=== PATIENT | female | born 1960 | race Caucasian/White ===

== ENCOUNTER → 2017-06-29 | Emergency (ER) | payer OTHER ==
[~2017-06-29] VITALS: Ht 165.1 cm; Wt 70.3 kg
[~2017-06-29] MED LIST: FIORICET 50-301 EACH; FIORICET TABLET1 TAB; IMITREX100 MG; IMITREX100 MG PO; LEVSINEX0.375 M1 PO; PROTECT PLUS S1 EACH PO; ZOFRAN8 MG PO; ZOLOFT100 MG
== END | disposition home or self-care (01) ==
LOC: ER 13:34
DX: K29.70 Gastritis, unspecified, without bleeding (principal); G43.809 Other migraine, not intractable, without status migrainosus

== ENCOUNTER → 2017-10-06 | Emergency (ER) | payer OTHER ==
[~2017-10-06] VITALS: Ht 167.6 cm; Wt 72.6 kg
[~2017-10-06] MED LIST changes: +DIOVAN160 M1
== END | disposition home or self-care (01) ==
LOC: ER 17:48
DX: G43.909 Migraine, unspecified, not intractable, without status migrainosus (principal)

== ENCOUNTER → 2018-04-05 | Emergency (ER) | payer OTHER ==
[~2018-04-05] VITALS: Ht 165.1 cm; Wt 77.1 kg
== END | disposition home or self-care (01) ==
LOC: ER 13:21
DX: K52.9 Noninfective gastroenteritis and colitis, unspecified (principal)

== ENCOUNTER 2018-11-25 18:08 | Emergency (ER) | payer OTHER ==
[~2018-11-25] VITALS: Ht 165.1 cm; Wt 63.5 kg
== END 2018-11-25 22:44 | disposition home or self-care (01) ==
LOC: ER 18:08
DX: G43.809 Other migraine, not intractable, without status migrainosus (principal)

== ENCOUNTER 2020-09-03 12:27 | Emergency (ER) | payer OTHER ==
[~2020-09-03] VITALS: Ht 165.1 cm; Wt 77.1 kg
[2020-09-03] MEDS ORDERED: ZOLOFT100 MG (12:32)
[2020-09-03] MEDS ORDERED: [UNRECOGNIZED DRUG - OTHER] (12:32)
[2020-09-03] MEDS ORDERED: FIORICET (12:33)
== END 2020-09-03 17:09 | disposition home or self-care (01) ==
LOC: ER 12:27
DX: G43.809 Other migraine, not intractable, without status migrainosus (principal)

== ENCOUNTER 2021-01-01 14:32 | Emergency (ER) | payer OTHER ==
[~2021-01-01] VITALS: Ht 165.1 cm; Wt 68.0 kg
[~2021-01-01 14:32] MED LIST changes: +FIORICET; +[UNRECOGNIZED DRUG - OTHER]
== END 2021-01-02 04:57 | disposition home or self-care (01) ==
LOC: ER 14:32
DX: R10.32 Left lower quadrant pain (principal); R53.1 Weakness; E87.6 Hypokalemia

== ENCOUNTER 2023-09-16 18:31 | Inpatient (IN) | payer OTHER ==
[~2023-09-16] VITALS: Ht 152.4 cm; Wt 104.3 kg
--- NOTE | 2023-09-16 18:54 | NUR ---
SE RECIBE PTE INCONSIENTE ACOMPANADA DE FAMILIAR EN MIRTA LA CUAL REFIERE QUE PTE COMENZO CON ELIZABETH DOLOR DE BETTINA EN LA TARDE DE HOY Y LUEGO DEJO DE RESPONDER. PTE NO RESPONDE A ESTIMULOS VERBALES Y DOLOR. SE TRASLADA A PTE A AREA DE CRITICO, SE CONECTA A PTE A MONITOR CARDIACO CON OXIMETRIA CONTINUA. SE MINOR S/V A PTE Y SE REALIZA DXT EL CUAL SE ENCUENTRA EN 102MG/DL PTE CON PULSO CAROTIDEO PRESENTE. SE NOTIFICA A MD PARA EVALUACION DE PTE. SE COLOCAN H/L X2 LIBRES DE EDEMA EN BRAZO RT, SE COLOCA CN A 3LTS. SE COLOCA ALLEN UTILIZANDO MEDIDAS ASEPTICAS Y ESTERILES. SE NOTIFICAN ABGS A PERSONAL DE TERAPIA RESPIRATORIA. SE NOTIFICAN ESTUDIOS DE CT Y RX PENDIENTES. SE TRASLADA A PTE PARA ESTUDIO DE CT. PTE SE ACOMODA EN CAMA Y SE BETY COMODIDAD. PTE SE CONTINUA MONITORIANDO POR CAMBIOS EN ESPERA DE RESULTADOS DE CT Y LABORATORIOS.
[2023-09-16 19:02] LABS: HEMATOCRIT 41.4 % (36.0-45.00); HEMOGLOBIN 13.9 g/dL (12.0-15.00); MEAN CELL VOLUME 89.4 fL (80.00-100.00); MEAN CORPUSCULAR HEMOGLOBIN 29.9 pg (27.00-32.0); MEAN CORPUSCULAR HGB CONC 33.5 g/dl (32.0-36.0); PLATELET COUNT 275 K/uL (150-450); RED BLOOD COUNT 4.64 M/uL (4.00-6.00); RED CELL DISTRIBUTION WIDTH 14.2 % (11.5-14.5)
[2023-09-16 19:03] LABS: ABG PH 7.371 (7.35-7.45); ABG PO2 85.3 mmHg (80-100); ABG pCO2 47.7 mmHg (35-45); BASE EXCESS 1.1 mmol/l; SaO2 96.1 %; Tco2 28.5 mmol/l
[2023-09-16 19:04] LABS: allen test SATISFACTORY; o2 21 %; puncture site RADIAL LEFT
[2023-09-16 19:31] LABS: PH,URINE 6.5 (5.0-8.0); URINE APPEARANCE Turbid; URINE BILIRRUBIN Negative (NEGATIVE); URINE BLOOD Trace; URINE COLOR Yellow; URINE GLUCOSE Negative (NEGATIVE); URINE LEUKOCYTE Negative; URINE NITRATE Negative; URINE PROTEIN Negative (NEGATIVE); URINE UROBILINOGEN 0.2 E.U./dl
[2023-09-16 19:31] LABS: ALBUMIN 3.6 gm/dL (3.4-5.0); BILIRUBIN TOTAL 0.32 mg/dL (0.3-1.2); CALCIUM 8.8 mg/dL (8.5-10.1); CREATININE SERUM 0.84 mg/dL (0.55-1.02); GFR 68.7; GLOBULINA 3.5 G/DL (2.4-3.5); POTASSIUM 3.66 mEq/L (3.5-5.1); TOTAL PROTEIN 7.1 gm/dL (6.4-8.2)
[2023-09-16 19:34] LABS: URINE RBC 14.9 uL (0.0-20.8)
[2023-09-16 19:40] LABS: URINE BACTERIA 2.5 uL (0.0-1933); URINE EPITHELIAL CELLS 0.1 uL (0.0-38.8); URINE WBC 0.9 uL (0.0-23.2)
[2023-09-16 19:53] LABS: COCAINE NEGATIVE (NEGATIVE); METHADONE NEGATIVE (NEGATIVE); OPIATES NEGATIVE (NEGATIVE); THC ( Cannabinoids) NEGATIVE (NEGATIVE)
[2023-09-16 20:15] LABS: INR 1.09; PARTIAL THROMBOPLASTIN TIME 27.8 SECONDS (22.0-34.0); PROTHROMBIN TIME 11.4 SECONDS (9.0-11.5)
[2023-09-16] MEDS ORDERED: DIOVAN320 MG (20:22)
[2023-09-16] MEDS ORDERED: 0.9 % SODIUM CHLORIDE 1,000 ML IV SCH (21:45)
[2023-09-16] MEDS ORDERED: IPRATROPIUM BROMIDE 0.5 MG/2.5 ML AMPUL.NEB IH SCH (21:48)
[2023-09-16] MEDS ORDERED: CLOPIDOGREL BISULFATE 75 MG TABLET PO SCH (21:53)
[2023-09-16] MEDS ORDERED: ATORVASTATIN CALCIUM 40 MG TABLET PO SCH (21:54)
[2023-09-16] MEDS ORDERED: ENALAPRILAT DIHYDRATE 1.25 MG/ML VIAL IV ONE (22:00)
[2023-09-16] MEDS ORDERED: ONDANSETRON HCL 4 MG in 0.9 % SODIUM CHLORIDE 50 ML IV PRN (22:00)
[2023-09-16] MEDS ORDERED: ACETAMINOPHEN 500 MG GEL..CAP PO PRN (22:00)
[2023-09-17] MEDS ORDERED: FAMOTIDINE/PF 20 MG/2 ML VIAL ONE (08:42)
[2023-09-17] MEDS ORDERED: FAMOTIDINE/PF 20 MG in 0.9 % SODIUM CHLORIDE 8 ML IV PUSH SCH (09:00)
[2023-09-17] MEDS ORDERED: LOSARTAN POTASSIUM 50 MG TABLET PO SCH (09:00)
[2023-09-17] MEDS ORDERED: LOSARTAN POTASSIUM 50 MG TABLET PO STA (13:17)
[2023-09-17] MEDS ORDERED: BUTALB/ACETAMINOPHEN/CAFFEINE 1 TAB TABLET PO PRN (15:00)
[2023-09-17] MEDS ORDERED: ENALAPRILAT DIHYDRATE 1.25 MG/ML VIAL IV PRN (15:00)
[2023-09-17] MEDS ORDERED: SODIUM CHLORIDE 0.45 % 1,000 ML IV SCH (15:00)
[2023-09-18] MEDS ORDERED: FAMOTIDINE/PF 20 MG/2 ML VIAL ONE (07:30)
[2023-09-18] MEDS ORDERED: LOSARTAN POTASSIUM 100 MG TABLET PO SCH (09:00)
[2023-09-18] MEDS ORDERED: DIPHENHYDRAMINE HCL 50 MG/ML VIAL 1ML IV STA (10:18)
[2023-09-18] MEDS ORDERED: DEXAMETHASONE SODIUM PHOSP/PF 10 MG/ML VIAL IV STA (10:19)
[2023-09-18] MEDS ORDERED: KETOROLAC TROMETHAMINE 30 MG VIAL IV STA (10:19)
[2023-09-18] MEDS ORDERED: KETOROLAC TROMETHAMINE 30 MG VIAL IV PRN (10:30)
[2023-09-18] MEDS ORDERED: DEXAMETHASONE SODIUM PHOSPHATE 4 MG/ML VIAL IV STA (10:31)
[2023-09-19] MEDS ORDERED: AMLODIPINE BESYLATE 2.5 MG TABLET PO SCH (11:57)
[2023-09-19] MEDS ORDERED: FAMOTIDINE/PF 20 MG in 0.9 % SODIUM CHLORIDE 8 ML IV PUSH SCH (21:00)
== END 2023-09-20 14:45 | disposition home or self-care (01) | DRG 69 ==
LOC: ER 18:31 → ICU-2 21:56 → ICU 21:56 → MEDI 09-18 20:15
PROVIDERS: Emergency Medicine; ADMIT Internal Medicine; ATTEND Internal Medicine
PROC: B030ZZZ Magnetic Resonance Imaging (MRI) of Brain (ICD-10-PCS; principal; 2023-09-16)
PROC: BW28ZZZ Computerized Tomography (CT Scan) of Head (ICD-10-PCS; 2023-09-16)
PROC: B343ZZ3 Ultrasonography of Right Common Carotid Artery, Intravascular (ICD-10-PCS; 2023-09-16)
PROC: B246ZZZ Ultrasonography of Right and Left Heart (ICD-10-PCS; 2023-09-17)
DX: G45.9 Transient cerebral ischemic attack, unspecified (principal); R55 Syncope and collapse; I10 Essential (primary) hypertension
CPT/HCPCS: 70544